=== PATIENT | female | born 1965 | race Caucasian/White ===

== ENCOUNTER 2019-10-21 12:41 | Emergency (ER) | payer OTHER ==
[~2019-10-21] VITALS: Ht 170.2 cm; Wt 104.3 kg
[2019-10-21] MEDS ORDERED: CLON0.5T PO (13:20)
[2019-10-21] MEDS ORDERED: FLUO20TA28 PO (13:20)
--- NOTE | 2019-10-21 13:37 | NUR ---
PT IS IN ROOM #2A. DR SALCEDO EVALUATED THE PT.
[2019-10-21] MEDS ORDERED: IV NORMAL SALINE 1000 ML BAG IV ONE (14:00)
[2019-10-21] MEDS ORDERED: NEOMY/BACITRA/POLYMYXIN B OINT UD PACKET TP ONE ×2 (14:00→14:30)
[2019-10-21 14:07] LABS: BASOPHILS % (AUTO) 0.6 % (0.0-2.0); EOSINOPHILS # (AUTO) 0.1 K/uL (0.0-0.7); EOSINOPHILS % (AUTO) 1.2 % (0.0-7.0); HEMATOCRIT 41.4 % (31.2-41.9); HEMOGLOBIN 13.7 g/dL (10.9-14.3); LYMPHOCYTES # (AUTO) 2.2 K/uL (20.0-40.0); LYMPHOCYTES % (AUTO) 35.3 % (20.5-51.5); MEAN CORPUSCULAR HEMOGLOBIN 28.6 uug (24.7-32.8); MEAN CORPUSCULAR HGB CONC 33 g/dL (32.3-35.6); MEAN CORPUSCULAR VOLUME 86.5 fL (75.5-95.3); MONOCYTES # (AUTO) 0.4 K/uL (2.0-10.0); MONOCYTES % (AUTO) 5.9 % (0.0-11.0); NEUTROPHILS # (AUTO) 3.6 K/uL (1.8-8.9); PLATELET COUNT (AUTO) 168 K/uL (179-408); RED BLOOD CELL COUNT(AUTO) 4.79 MIL/uL (3.63-4.92); WHITE BLOOD COUNT (AUTO) 6.3 K/uL (3.8-11.8)
[2019-10-21 14:23] LABS: BILIRUBIN,DIRECT 0.1 mg/dL (0.0-0.2); BILIRUBIN,TOTAL 0.4 mg/dL (0.2-1.0); CREATININE 0.6 mg/dL (0.6-1.3); POTASSIUM 3.9 mmol/L (3.5-5.1); TOTAL PROTEIN, SERUM 6.9 g/dL (6.4-8.2)
[2019-10-21] MEDS ORDERED: HYDROCODONE/APAP 5-325MG TABLET ONE (14:39)
[2019-10-21] MEDS ORDERED: HYDROCODONE/APAP 5-325MG TABLET PO ONE (14:45)
--- NOTE | 2019-10-21 15:10 | NUR ---
PT WAS D/C'd TO HOME AFTER DR SALCEDO EVALUATION. D/C INSTRUCTIONS GIVEN TO THE PT. GAIT IS STABLE. NO S/S OF DISTRESSAT THIS TIME. NO SOB. NO N/V. PT DENIES PAIN.
[2019-10-21 15:12] VITALS: BP 145/72
== END 2019-10-21 15:13 | disposition home or self-care (01) ==
LOC: ER 12:41
DX: S00.81XA Abrasion of other part of head, initial encounter (principal); R55 Syncope and collapse; H81.10 Benign paroxysmal vertigo, unspecified ear; I10 Essential (primary) hypertension; F32.9 Major depressive disorder, single episode, unspecified; Z79.899 Other long term (current) drug therapy; X58.XXXA Exposure to other specified factors, initial encounter; Y93.89 Activity, other specified; Y92.89 Other specified places as the place of occurrence of the external cause; Y99.8 Other external cause status
CPT/HCPCS: 36415; 70030-TC; 70450; 71045; 84443; 85025; 93005; A4663; J7030

== ENCOUNTER 2022-06-12 21:31 | Emergency (ER) | payer MEDICARE, OTHER ==
[~2022-06-12] VITALS: Ht 162.6 cm; Wt 108.9 kg
[~2022-06-12 21:31] MED LIST: CLON0.5T PO; FLUO20TA28 PO
--- NOTE | 2022-06-13 00:40 | NUR ---
Patient arrived at the ER with complain of right elbow and right knee pain from a fall.
--- NOTE | 2022-06-13 00:41 | NUR ---
Dr. Rosenthal on bedside for MSE.
[2022-06-13] MEDS ORDERED: HYDROCODONE/APAP 10-325 MG TABLET ONE (00:53)
[2022-06-13] MEDS ORDERED: HYDROCODONE/APAP 10-325 MG TABLET PO ONE (01:00)
--- NOTE | 2022-06-13 02:06 | NUR ---
Patient back from CT.
[2022-06-13] MEDS ORDERED: MAG HYDROX/AL HYDROX/SIMETH 30 ML LIQUID UDC ONE (02:28)
[2022-06-13] MEDS ORDERED: MAG HYDROX/AL HYDROX/SIMETH 30 ML LIQUID UDC PO ONE (02:30)
[2022-06-13] MEDS ORDERED: HYDR-3980 PO (03:59)
[2022-06-13 04:08] VITALS: BP 140/86
--- NOTE | 2022-06-13 04:08 | NUR ---
Patient discharged to home in stable condition. Written and verbal after care instructions given. Patient and family verbalizes understanding of instructions. Stressed follow up or return to ER for worsening s/s. Patient ambulated fr the ER with steady gait. All belongings with patient.
== END 2022-06-13 04:09 | disposition home or self-care (01) ==
LOC: ER 21:31
DX: M23.91 Unspecified internal derangement of right knee (principal); S89.91XA Unspecified injury of right lower leg, initial encounter; S52.121A Displaced fracture of head of right radius, initial encounter for closed fracture; S20.211A Contusion of right front wall of thorax, initial encounter; W01.0XXA Fall on same level from slipping, tripping and stumbling without subsequent striking against object, initial encounter; Y92.89 Other specified places as the place of occurrence of the external cause; I10 Essential (primary) hypertension; F32.A Depression, unspecified
CPT/HCPCS: 71045; 73080; 73700; A4663